=== PATIENT | male | born 1930 | race Caucasian/White ===

== ENCOUNTER → 2017-01-03 | Outpatient (CLI) | payer MEDICARE, OTHER ==
[~2017-01-03] MED LIST: ASPIRIN LO-DOSE81 MG PO; COLACE100 MG PO; DILAUDID 2MG(HYD2 MG PO; TENORMIN25 MG PO; THERA-VITE W/ B1 TAB PO; TYLENOL325 MG PO; VALIUM5 MG PO; XARELTO10 MG PO; [UNRECOGNIZED DRUG - OTHER] PO
== END | disposition disaster alternative care site (69) ==
LOC: GRAD 08:29
DX: M25.552 Pain in left hip (principal); M25.551 Pain in right hip; M48.06 Spinal stenosis, lumbar region; M79.604 Pain in right leg; M79.605 Pain in left leg

== ENCOUNTER → 2017-03-08 | Day surgery (SDC) | payer MEDICARE, OTHER ==
[~2017-03-08] VITALS: Ht 167.6 cm; Wt 64.1 kg
== END | disposition disaster alternative care site (69) ==
LOC: GPOC 03-07 17:00 → GSDC 12:07
PROC: 3E0S3BZ Introduction of Anesthetic Agent into Epidural Space, Percutaneous Approach (ICD-10-PCS; principal; 2017-03-08)
PROC: 3E0S33Z Introduction of Anti-inflammatory into Epidural Space, Percutaneous Approach (ICD-10-PCS; 2017-03-08)
DX: M54.9 Dorsalgia, unspecified (principal); M79.604 Pain in right leg; M25.551 Pain in right hip; M48.06 Spinal stenosis, lumbar region; M19.90 Unspecified osteoarthritis, unspecified site; F32.9 Major depressive disorder, single episode, unspecified; I25.10 Atherosclerotic heart disease of native coronary artery without angina pectoris; F41.9 Anxiety disorder, unspecified; M81.0 Age-related osteoporosis without current pathological fracture; I10 Essential (primary) hypertension; G47.30 Sleep apnea, unspecified; Z87.891 Personal history of nicotine dependence; Z95.1 Presence of aortocoronary bypass graft; Z98.890 Other specified postprocedural states; Z98.42 Cataract extraction status, left eye; Z79.82 Long term (current) use of aspirin; Z79.899 Other long term (current) drug therapy; Z96.643 Presence of artificial hip joint, bilateral; Z88.1 Allergy status to other antibiotic agents; Z88.8 Allergy status to other drugs, medicaments and biological substances
CPT/HCPCS: J1030; J1040; J1100

== ENCOUNTER → 2017-03-08 | Outpatient (CLI) | payer MEDICARE, OTHER ==
[~2017-03-08] VITALS: Ht 167.6 cm; Wt 64.1 kg
== END | disposition disaster alternative care site (69) ==
LOC: GKIC 10:57
DX: M25.612 Stiffness of left shoulder, not elsewhere classified (principal); M54.2 Cervicalgia; M47.892 Other spondylosis, cervical region; M48.02 Spinal stenosis, cervical region; M43.22 Fusion of spine, cervical region; R29.2 Abnormal reflex